=== PATIENT | male | born 1940 | race Caucasian/White ===

== ENCOUNTER 2022-03-21 14:02 | Inpatient (IN) | payer MEDICARE, OTHER ==
[~2022-03-21] VITALS: Ht 175 cm; Wt 86.0 kg
[2022-03-21 14:28] LABS: MEAN CORPUSCULAR VOLUME 95 fL (80-99)
[2022-03-21 14:29] LABS: ALBUMIN 3.9 GM/DL (3.2-4.5); CHLORIDE 103 MMOL/L (98-107)
--- NOTE | 2022-03-21 14:29 | ED General ---
General Chief Complaint: Respiratory Problems Stated Complaint: SOA - DIZZY Nursing Triage Note: PT AMB TO [facility] 9 WITH COMPLAINT OF SOA. STATES HAS HAD THSI PROBLEM FOR YEARS. STATES WENT TO PCP TODAY AND WAS SENT OVER TO ER FOR EVALUATION OF DIZZINESS WHEN WALKING. Source of Information: Patient Exam Limitations: No Limitations History of Present Illness Date Seen by Provider: Mar 21, 2022 Time Seen by Provider: 14:23 Initial Comments To ER by POV from [facility] with reports of general weakness and new hypotension .Typically Dr Willett sees him for hypertension but today was found to be at 90s/60s. She walked him and didnt have any exertional hypoxia but did have exertional dyspnea. Pt states this has been an ongoing problem and is a very poor historian. States he's had general fatigue and feels like he could sleep all day since some time this summer .He denies any chest pain or any pain anywhere. No leg swelling. No Nausea. Normal appetite. Timing/Duration: Getting Worse Severity: Moderate Associated Systoms: No Chest Pain, No Cough, No Diaphoresis; Fever/Chills, Weakness Allergies and Home Medications Allergies Coded Allergies: adhesive tape (Verified Allergy, Unknown, 03/21/22) Patient Home Medication List Home Medication List Reviewed: Yes Review of Systems Review of Systems Constitutional: see HPI; No chills, No fever; malaise; No weight gain, No weight loss EENTM: see HPI Respiratory: no symptoms reported Cardiovascular: no symptoms reported Genitourinary: no symptoms reported Musculoskeletal: no symptoms reported Skin: no symptoms reported Psychiatric/Neurological: No Symptoms Reported Hematologic/Lymphatic: No Symptoms Reported Past Zpzgpbu-Ptxqhz-Laoglo Hx Patient Social History Tobacco Use?: No Use of E-Cig and/or Vaping dev: No Substance use?: No Alcohol Use?: No Pt feels they are or have been: No Physical Exam Vital Signs Vital Signs - First Documented 03/21/22 14:09 Temp 36.8 Pulse 92 Resp 16 B/P (MAP) 152/80 (104) Pulse Ox 96 O2 Delivery Room Air Capillary Refill : Less Than 3 Seconds Height, Weight, BMI Height: '" Weight: lbs. oz. kg; 26.00 BMI Method: General Appearance: No Apparent Distress, WD/WN, Other (alert, talkative, pleasant. BP 130s/70s checked on each arm. ) Eyes: Bilateral Eye Normal Inspection, Bilateral Eye PERRL, Bilateral Eye EOMI HEENT: PERRL/EOMI, TMs Normal Neck: Full Range of Motion, Normal Inspection Respiratory: No Accessory Muscle Use, No Respiratory Distress Cardiovascular: Regular Rate, Rhythm, Normal Peripheral Pulses Gastrointestinal: Normal Bowel Sounds, Non Tender, Soft Extremity: Normal Capillary Refill, Normal Inspection, No Pedal Edema; No Swelling Neurologic/Psychiatric: Alert, Oriented x3 Skin: Normal Color, Warm/Dry Progress/Results/Core Measures Suspected Sepsis SIRS Temperature: Pulse: 92 Respiratory Rate: 16 Laboratory Tests 03/21/22 14:14: White Blood Count 4.9 Blood Pressure 152 /80 Mean: 104 Laboratory Tests 03/21/22 14:14: Creatinine 1.39H, INR Comment 1.0, Platelet Count 137, Total Bilirubin 0.7 Results/Orders Lab Results Laboratory Tests Test 03/21/22 14:14 03/21/22 14:40 Range/Units White Blood Count 4.9 4.3-11.0 10^3/uL Red Blood Count 4.57 4.30-5.52 10^6/uL Hemoglobin 13.9 13.3-17.7 g/dL Hematocrit 43 40-54 % Mean Corpuscular Volume 95 80-99 fL Mean Corpuscular Hemoglobin 30 25-34 pg Mean Corpuscular Hemoglobin Concent 32 32-36 g/dL Red Cell Distribution Width 13.9 10.0-14.5 % Platelet Count 137 130-400 10^3/uL Mean Platelet Volume 9.8 9.0-12.2 fL Immature Granulocyte % (Auto) 0 % Neutrophils (%) (Auto) 56 42-75 % Lymphocytes (%) (Auto) 29 12-44 % Monocytes (%) (Auto) 8 0-12 % Eosinophils (%) (Auto) 6 0-10 % Basophils (%) (Auto) 1 0-10 % Neutrophils # (Auto) 2.8 1.8-7.8 10^3/uL Lymphocytes # (Auto) 1.5 1.0-4.0 10^3/uL Monocytes # (Auto) 0.4 0.0-1.0 10^3/uL Eosinophils # (Auto) 0.3 0.0-0.3 10^3/uL Basophils # (Auto) 0.0 0.0-0.1 10^3/uL Immature Granulocyte # (Auto) 0.0 0.0-0.1 10^3/uL Percent Immature Platelet Fraction 2.6 0.0-7.6 % Prothrombin Time 14.0 12.2-14.7 SEC INR Comment 1.0 0.8-1.4 Sodium Level 136 135-145 MMOL/L Potassium Level 4.2 3.6-5.0 MMOL/L Chloride Level 103 98-107 MMOL/L Carbon Dioxide Level 27 21-32 MMOL/L Anion Gap 6 5-14 MMOL/L Blood Urea Nitrogen 17 7-18 MG/DL Creatinine 1.39 H 0.60-1.30 MG/DL Estimat Glomerular Filtration Rate 51 BUN/Creatinine Ratio 12 Glucose Level 89 70-105 MG/DL Calcium Level 9.3 8.5-10.1 MG/DL Corrected Calcium 9.4 8.5-10.1 MG/DL Magnesium Level 1.9 1.6-2.4 MG/DL Total Bilirubin 0.7 0.1-1.0 MG/DL Aspartate Amino Transf (AST/SGOT) 45 H 5-34 U/L Alanine Aminotransferase (ALT/SGPT) 51 0-55 U/L Alkaline Phosphatase 156 H 40-136 U/L Troponin I < 0.028 <0.028 NG/ML Total Protein 8.0 6.4-8.2 GM/DL Albumin 3.9 3.2-4.5 GM/DL Thyroid Stimulating Hormone (TSH) 44.13 H 0.35-4.94 UIU/ML Free Thyroxine 0.54 L 0.70-1.48 NG/DL Urine Color YELLOW Urine Clarity CLEAR Urine pH 5.5 5-9 Urine Specific [place] 1.025 H 1.016-1.022 Urine Protein NEGATIVE NEGATIVE Urine Glucose (UA) NEGATIVE NEGATIVE Urine Ketones TRACE H NEGATIVE Urine Nitrite NEGATIVE NEGATIVE Urine Bilirubin NEGATIVE NEGATIVE Urine Urobilinogen 0.2 < = 1.0 MG/DL Urine Leukocyte Esterase NEGATIVE NEGATIVE Urine RBC (Auto) NEGATIVE NEGATIVE Urine RBC NONE /HPF Urine WBC 0-2 /HPF Urine Crystals NONE /LPF Urine Bacteria TRACE /HPF Urine Casts NONE /LPF Urine Mucus SMALL H /LPF Urine Culture Indicated CULTURE PENDING My Orders Orders - STEVEN RAMIREZ APRN Iv/Invasive Line Insertion .IV INSERT (03/21/22 14:18) Cbc With Automated Diff (03/21/22 14:21) Comprehensive Metabolic Panel (03/21/22 14:21) Magnesium (03/21/22 14:21) Thyroid Stimulating Hormone (03/21/22 14:21) Free T4 (Free Thyroxine) (03/21/22 14:21) Ua Culture If Indicated (03/21/22 14:21) Protime With Inr (03/21/22 14:21) Ekg Tracing (03/21/22 14:21) Troponin I [place] (03/21/22 14:21) Chest 1 View, Ap/Pa Only (03/21/22 14:21) Levothyroxine Tablet (Synthroid Tablet) (03/21/22 15:30) Vital Signs/I&O 03/21/22 14:09 Temp 36.8 Pulse 92 Resp 16 B/P (MAP) 152/80 (104) Pulse Ox 96 O2 Delivery Room Air Capillary Refill : Less Than 3 Seconds Blood Pressure Mean: 104 Departure Communication (Admissions) 1524-Spoke with dr Kimball cooperative extension agent for [facility] jacqueline admit start on 75mcg levothyroxine po daily and admit given his general weakness advanced age and living at home alone. He is full code status. Impression Primary Impression: Hypothyroidism Disposition: ADMITTED INPATIENT Condition: Stable Admissions Decision to Admit Reason: Admit from ER (General) Decision to Admit/Date: Mar 21, 2022 Time/Decision to Admit Time: 15:23 Departure-Patient Inst. Referrals: [facility] (PCP/Family) Primary Care Physician STEVEN RAMIREZ APRN Mar 21, 2022 14:29
[2022-03-21 14:30] LABS: BASOPHILS % (AUTO) 1 % (0-10); EOSINOPHILS # (AUTO) 0.3 10^3/uL (0.0-0.3); EOSINOPHILS % (AUTO) 6 % (0-10); HEMATOCRIT 43 % (40-54); HEMOGLOBIN 13.9 g/dL (13.3-17.7); LYMPHOCYTES # (AUTO) 1.5 10^3/uL (1.0-4.0); LYMPHOCYTES % (AUTO) 29 % (12-44); MEAN CORPUSCULAR HEMOGLOBIN 30 pg (25-34); MEAN CORPUSCULAR HGB CONC 32 g/dL (32-36); MEAN PLATELET VOLUME 9.8 fL (9.0-12.2); MONOCYTES # (AUTO) 0.4 10^3/uL (0.0-1.0); MONOCYTES % (AUTO) 8 % (0-12); NEUTROPHILS # (AUTO) 2.8 10^3/uL (1.8-7.8); NEUTROPHILS % (AUTO) 56 % (42-75); PLATELET COUNT 137 10^3/uL (130-400); POTASSIUM 4.2 MMOL/L (3.6-5.0); SODIUM 136 MMOL/L (135-145); WHITE BLOOD COUNT 4.9 10^3/uL (4.3-11.0)
[2022-03-21 14:31] LABS: CALCIUM 9.3 MG/DL (8.5-10.1)
[2022-03-21 14:32] LABS: GLUCOSE 89 MG/DL (70-105)
[2022-03-21 14:33] LABS: CARBON DIOXIDE 27 MMOL/L (21-32)
[2022-03-21 14:34] LABS: BILIRUBIN,TOTAL 0.7 MG/DL (0.1-1.0)
[2022-03-21 14:35] LABS: ALKALINE PHOSPHATASE 156 U/L (40-136); CREATININE SERUM 1.39 MG/DL (0.60-1.30); GFR ESTIMATED 51
[2022-03-21 14:37] LABS: BUN/CREATININE RATIO 12
[2022-03-21 14:38] LABS: ALANINE AMINOTRANSFERASE 51 U/L (0-55)
[2022-03-21 14:39] LABS: MAGNESIUM 1.9 MG/DL (1.6-2.4)
[2022-03-21 14:49] LABS: BILIRUBIN,URINE NEGATIVE (NEGATIVE); CLARITY,URINE CLEAR; COLOR,URINE YELLOW; GLUCOSE, URINE (UA) NEGATIVE (NEGATIVE); KETONES,URINE TRACE (NEGATIVE); LEUKOCYTE ESTERASE ,URINE NEGATIVE (NEGATIVE); NITRITE,URINE NEGATIVE (NEGATIVE); PH,URINE 5.5 (5-9); PROTEIN,URINE NEGATIVE (NEGATIVE)
--- NOTE | 2022-03-21 14:49 | Diagnostic Imaging Report ---
INDICATION: Weakness. COMPARISON: None. FINDINGS: Single frontal view of the chest demonstrates normal heart size and pulmonary vascularity. The lungs are well aerated and clear. No large pleural effusion or pneumothorax is seen. The visualized osseous structures show no acute abnormalities. IMPRESSION: 1. No acute cardiopulmonary process. Dictated by: Dictated on workstation # [id number]
[2022-03-21 15:00] LABS: FREE T4 (FREE THYROXINE) 0.54 NG/DL (0.70-1.48)
[2022-03-21 15:07] LABS: BACTERIA,URINE TRACE /HPF; WBC,URINE 0-2 /HPF
[2022-03-21] MEDS ORDERED: LEVOTHYROXINE 75 MCG (LEVOTHROID) TABLET PO ONE (15:30)
[2022-03-21] MEDS ORDERED: LEVOTHYROXINE 100 MCG INJ (SYNTHROID) VIAL IV SCH (15:45)
[2022-03-21 16:32] VITALS: BP 149/81
[2022-03-21] MEDS ORDERED: CATHETER FLUSH 10 ML SYR IVP PRN (16:45)
[2022-03-21] MEDS ORDERED: DOXA8TAB73 PO (17:30)
[2022-03-21] MEDS ORDERED: ISOS20TA13 PO (17:30)
[2022-03-21] MEDS ORDERED: MELA10TA2 PO (17:30)
[2022-03-21] MEDS ORDERED: PANT40TA52 PO (17:30)
[2022-03-21] MEDS ORDERED: FINA5TAB6 PO (17:30)
[2022-03-21] MEDS ORDERED: LISI20TA26 PO (17:30)
[2022-03-21] MEDS ORDERED: TRAZ-227 PO (17:30)
[2022-03-21] MEDS ORDERED: ASPI-1238 PO (17:30)
[2022-03-21] MEDS ORDERED: ATOR40TA70 PO (17:30)
[2022-03-21] MEDS ORDERED: PARO40TA3 PO (17:30)
[2022-03-21] MEDS ORDERED: LEVO175C2 PO (17:30)
[2022-03-21] MEDS ORDERED: ISOS10TA8 PO (17:30)
[2022-03-21 19:39] VITALS: BP 144/77
[2022-03-21] MEDS: CATHETER FLUSH 10 ML SYR IVP SCH (20:54)
[2022-03-21] MEDS ORDERED: MELATONIN 10 MG TABLET PO SCH (21:00)
[2022-03-21] MEDS ORDERED: FINASTERIDE (PROSCAR) 5 MG TAB PO SCH (21:00)
[2022-03-21 23:56] VITALS: BP 138/71
[2022-03-22 04:00] VITALS: BP 112/59
[2022-03-22 05:53] LABS: BASOPHILS % (AUTO) 1 % (0-10); EOSINOPHILS # (AUTO) 0.4 10^3/uL (0.0-0.3); EOSINOPHILS % (AUTO) 8 % (0-10); HEMATOCRIT 39 % (40-54); LYMPHOCYTES # (AUTO) 1.7 10^3/uL (1.0-4.0); LYMPHOCYTES % (AUTO) 37 % (12-44); MEAN CORPUSCULAR HEMOGLOBIN 31 pg (25-34); MEAN CORPUSCULAR HGB CONC 33 g/dL (32-36); MEAN CORPUSCULAR VOLUME 93 fL (80-99); MONOCYTES # (AUTO) 0.4 10^3/uL (0.0-1.0); MONOCYTES % (AUTO) 8 % (0-12); NEUTROPHILS # (AUTO) 2.2 10^3/uL (1.8-7.8); NEUTROPHILS % (AUTO) 46 % (42-75); PLATELET COUNT 122 10^3/uL (130-400); WHITE BLOOD COUNT 4.7 10^3/uL (4.3-11.0)
[2022-03-22 05:59] LABS: POTASSIUM 4.1 MMOL/L (3.6-5.0)
[2022-03-22 06:00] LABS: CALCIUM 9.3 MG/DL (8.5-10.1)
[2022-03-22 06:05] LABS: CREATININE SERUM 1.11 MG/DL (0.60-1.30)
[2022-03-22] MEDS ORDERED: LEVOTHYROXINE 75 MCG (LEVOTHROID) TABLET PO SCH (06:30)
[2022-03-22] MEDS ORDERED: LEVOTHYROXINE 100 MCG (LEVOTHROID) TAB PO SCH (06:30)
[2022-03-22] MEDS: CATHETER FLUSH 10 ML SYR IVP SCH (06:32)
[2022-03-22 06:34] LABS: FREE T4 (FREE THYROXINE) 0.57 NG/DL (0.70-1.48)
[2022-03-22 08:00] VITALS: BP 141/62
[2022-03-22] MEDS ORDERED: LEVOTHYROXINE SODIUM 175 MCG PO SCH (09:00)
[2022-03-22] MEDS ORDERED: NON-FORMULARY MEDICATION 1 EA EA (Paroxetine HCl 40 MG) PO SCH (09:00)
[2022-03-22] MEDS ORDERED: PARoxetine 20 MG (PAXIL) TAB PO SCH (09:00)
[2022-03-22] MEDS ORDERED: PANTOPRAZOLE 40 MG (PROTONIX) TAB PO SCH (09:00)
[2022-03-22 09:51] VITALS: BP 141/62
--- NOTE | 2022-04-05 20:02 | Short Stay Summary-Hospitalist ---
History of Present Illness HPI/Chief Complaint To ER by POV from [facility] with reports of general weakness and new hypotension .Typically Dr Brennon sees him for hypertension but today was found to be at 90s/60s. She walked him and didnt have any exertional hypoxia but did have exertional dyspnea. Pt states this has been an ongoing problem and is a very p oor historian. States he's had general fatigue and feels like he could sleep all day since some time this summer .He denies any chest pain or any pain anywhere. No leg swelling. No Nausea. Normal appetite. Upon my arrival patient was feeling better with all of his blood pressure medicines having been held. He reported that his dizziness was upon standing worse over the past several months and possibly worsened or associated with apparent recent addition of an alpha-xiao. He had had several syncopal epi sodes all while standing in the last several months with increasing weakness. He reports he feels well when he is sitting or supine with no syncopal episodes in these positions. He denies chest discomfort sensation of palpitation or heart racing. Date Seen 03/22/22 Time Seen by a Provider: 10:00 Attending Physician [facility] PCP Admitting Physician: Tarun Zimmer MD Attending Physician: Tarun Zimmer MD Referring Physician Date of Admission Mar 21, 2022 at 15:29 Home Medications & Allergies Home Medications Reviewed patient Home Medication Reconciliation performed by pharmacy medication reconciliations floor care technician and/or nursing. Patients Allergies have been reviewed. Allergies Allergies Coded Allergies adhesive tape (Verified Allergy, Unknown, 03/21/22) Past Rbtclda-Hzjhum-Qmuzak Hx Patient Social History Tobacco Use?: No Use of E-Cig and/or Vaping dev: No Substance use?: No Alcohol Use?: No Pt feels they are or have been: No Immunizations Up To Date Tetanus Booster (TDap): Unknown Hepatitis A: No Hepatitis B: No Current Status Advance Directives: No Communicates: Verbally Primary Language: Chinese Sensory deficits: Vision impairment, Hearing impairment Additional sensory deficits: KURT HEARING AID AT HOME Review of Systems Constitutional: see HPI Physical Exam Physical Exam Vital Signs Capillary Refill : Less Than 3 Seconds Height, Weight, BMI Height: '" Weight: lbs. oz. kg; 28.08 BMI Method: General Appearance: No Apparent Distress, WD/WN, Other (alert, talkative, pleasant. BP 130s/70s checked on each arm. ) Eyes: Bilateral Eye Normal Inspection, Bilateral Eye PERRL, Bilateral Eye EOMI HEENT: PERRL/EOMI, TMs Normal Neck: Full Range of Motion, Normal Inspection Respiratory: No Accessory Muscle Use, No Respiratory Distress Cardiovascular: Regular Rate, Rhythm, Normal Peripheral Pulses Gastrointestinal: Normal Bowel Sounds, Non Tender, Soft Extremity: Normal Capillary Refill, Normal Inspection, No Pedal Edema; No Swelling Neurologic/Psychiatric: Alert, Oriented x3 Skin: Normal Color, Warm/Dry Results Results/Procedures Labs Patient resulted labs reviewed. Short Stay Diagnosis Discharge Diagnosis-Short Stay Admission Diagnosis 1. Orthostatic hypotension with secondary fatigue and syncope. 2. History of hypertension currently overmedicated. 3. Hypothyroidism Final Discharge Diagnosis Same as admission diagnosis Conclusion Plan For management of his hypertension IV fluids were initiated and antihypertensive medication was held specifically lisinopril long-acting nitrate therapy and likely the biggest culprit doxazosin. He reports compliance with taking L- thyroxine although he may have been taking it with other medications or multiple vitamin with a TSH of 55 indicative of significant hypothyroidism. Discussed the importance of taking this specifically 175 mcg dose first thing in the morning with no other medication or food waiting at least half an hour. His discharge blood pressure off of medication was 140/61 standing. I would base adequacy of antihypertensive therapy on a standing blood pressure considering his age and likely loss of vascular compliance. He will likely need 3 addition of lisinopril but would hold doxazosin and considering relatively low diastolic pressure and lack of history of definitive coronary disease would not resume nitrate therapy. He will need repeat TSH in 6weeks. He was discharged feeling much better. TARUN ZIMMER MD Apr 05, 2022 20:02
== END 2022-03-22 09:53 | disposition home or self-care (01) | DRG 312 ==
LOC: ER 14:05 → 4TH 15:29
PROVIDERS: ADMIT Internal Medicine; ATTEND Internal Medicine
DX: I95.1 Orthostatic hypotension (principal); I10 Essential (primary) hypertension; R53.83 Other fatigue; H91.93 Unspecified hearing loss, bilateral; H54.7 Unspecified visual loss; Z97.4 Presence of external hearing-aid
CPT/HCPCS: 36415; 71045; 80048; 80053; 81000; 83735; 84439; 84443; 84484; 85025; 85610; 93005; 96374

== ENCOUNTER → 2022-09-23 | Outpatient (CLI) | payer MEDICARE ==
[~2022-09-23] MED LIST: ASPI-1238 PO; ATOR40TA70 PO; DOXA8TAB73 PO; FINA5TAB6 PO; ISOS10TA8 PO; ISOS20TA13 PO; LEVO175C2 PO; LISI20TA26 PO; MELA10TA2 PO; PANT40TA52 PO; PARO40TA3 PO; TRAZ-227 PO
--- NOTE | 2022-09-23 19:17 | Diagnostic Imaging Report ---
PROCEDURE: US carotid duplex, bilateral. TECHNIQUE: Multiple real-time grayscale images were obtained over the carotid arteries in various projections, bilaterally. Additional spectral analysis and color Doppler duplex images were also obtained. INDICATION: TIA, transient ischemic attack COMPARISON: None available FINDINGS: Mild scattered plaque is noted within bilateral carotid arterial systems, left greater than right. Peak systolic velocities within bilateral carotid arterial system are within normal limits. Additionally, the bilateral internal carotid artery to common carotid artery ratios are within normal limits. Antegrade flow within the bilateral vertebral arteries. IMPRESSION: No evidence of hemodynamically significant stenosis within the bilateral carotid arterial systems. Antegrade flow within bilateral vertebral arteries. Parameters based on the consensus panel Ma-Scale and Doppler ultrasound criteria published April 2003, Radiology, Volume 229. DOPPLER (peak systolic velocity M/S Right Left CCA .79 .82 ICA Proximal .69 .65 ICA Mid .59 .53 ICA Distal .52 .52 RATIO .9 .8 ECA .75 .76 VERT .62 .52 Dictated by: Dictated on workstation # [id number]
== END ==
LOC: RAD 12:38
PROVIDERS: ATTEND Internal Medicine
DX: G45.9 Transient cerebral ischemic attack, unspecified (principal)
CPT/HCPCS: 93880

== ENCOUNTER → 2023-01-06 | Outpatient (CLI) | payer MEDICARE ==
[~2023-01-06] MED LIST changes: +RT-ALBUTEROL SULF 2.5 MG/3 ML PRE-MIX VIAL INH ONE
== END ==
LOC: RT 10:00
PROVIDERS: ATTEND Pediatrics
DX: J44.9 Chronic obstructive pulmonary disease, unspecified (principal)
CPT/HCPCS: 94060; 94726; 94729